=== PATIENT | male | born 2000 | race Hispanic/Latino ===

== ENCOUNTER 2023-03-13 12:16 | Emergency (ER) | payer OTHER ==
[~2023-03-13] VITALS: Ht 167.6 cm; Wt 65.8 kg
[2023-03-13 12:24] VITALS: BP 121/83
[2023-03-13] MEDS ORDERED: 0.9%NACL 1000ML 1,000 ML IV ONE (12:30)
[2023-03-13] MEDS ORDERED: FAMOTIDINE 20MG VIAL IV ONE (12:30)
[2023-03-13] MEDS ORDERED: SOLU-MEDROL 40MG VIAL IVP ONE (12:30)
[2023-03-13] MEDS ORDERED: DiphenhydrAMINE HCL 50 MG/ML VIAL IV ONE (12:30)
[2023-03-13] MEDS ORDERED: DIPH25TA22 PO (13:15)
[2023-03-13] MEDS ORDERED: PRED50TA2 PO (13:15)
[2023-03-13] MEDS ORDERED: FAMO20TA8 PO (13:15)
== END 2023-03-13 13:56 | disposition home or self-care (01) ==
LOC: EDH 12:16
DX: T63.441A Toxic effect of venom of bees, accidental (unintentional), initial encounter (principal); R21 Rash and other nonspecific skin eruption
CPT/HCPCS: 99284; 96374; 96375; 96361; J1200; J3490; J7030; J2920